=== PATIENT | female | born 1950 | race American Indian/Alaskan Native ===

== ENCOUNTER 2018-11-19 06:10 | Day surgery (SDC) | payer MEDICARE ==
[2018-11-19 06:37] VITALS: BMI 26.4
--- NOTE | 2018-11-19 07:46 | CP.SDSHP ---
Same Day Surgery H & P - History Proposed Procedure: COLONSCOPY Pre-Op Diagnosis: SEE NOTES - Previous Medical/Surgical History Cardiac: Hypertension Endocrine/Metabolic: Other Misc: Other Pain: 2.Mild Pain - Allergies Allergies: Allergies No Known Allergies Allergy (Verified 05/27/13 07:44) - Physical Exam General Appearance: n Vital Signs: Vital Signs 11/19/18 06:31 Temperature 97.0 F L Pulse Rate 78 Respiratory 18 Rate Blood Pressure 114/74 O2 Sat by Pulse 100 Oximetry Mental Status: Alert & Oriented x3 Neuro: WNL Heart: Other Lungs: WNL GI: WNL - {Optional Preform as Required} Breast: WNL Abdomen: Other Rectal: Other Integument: WNL : WNL Ortho: Other ENT: WNL - Impression Pt. Evaluated Today:Candidate for Anesthesia & Procedure: Yes - Date & Time Time: 07:46 Short Stay Discharge - Short Stay Discharge Admitting Diagnosis/Reason for Visit: SCREENING Disposition: HOME/ ROUTINE
[2018-11-19] MEDS ORDERED: Propofol 10 mg/ml Inj (20 ML) ONE (07:53)
[2018-11-19] MEDS ORDERED: Belladonna-Phenobarbital PO ONE (08:40)
[2018-11-19 08:55] VITALS: RESP 14; TEMP 97.5; O2SAT 99
[2018-11-19 09:13] VITALS: BP 109/53; PULSE 68
== END 2018-11-19 11:30 | disposition home or self-care (01) ==
LOC: C.ENDO 06:10
PROVIDERS: ATTEND Specialist
DX: Z12.11 Encounter for screening for malignant neoplasm of colon (principal); K64.8 Other hemorrhoids; K64.4 Residual hemorrhoidal skin tags; K58.9 Irritable bowel syndrome, unspecified; I10 Essential (primary) hypertension; E78.5 Hyperlipidemia, unspecified; Z79.82 Long term (current) use of aspirin; Z79.899 Other long term (current) drug therapy
CPT/HCPCS: G0121; J2704